=== PATIENT | male | born 1970 | race Caucasian/White ===

== ENCOUNTER → 2017-08-11 | Outpatient (CLI) | payer BC ==
--- NOTE | 2017-08-11 20:05 | CT ---
EXAMINATION TYPE: CT lumbar spine wo con DATE OF EXAM: 08/11/2017 7:57 PM COMPARISON: NONE HISTORY: Low back pain with radiating pain down the right leg CT DLP: 2294.5 mGycm Automated exposure control for dose reduction was used. Unenhanced CT of the lumbar spine was performed. Bone and soft tissue window settings are submitted as well as coronal and sagittal reconstructions. The lumbar vertebra have fairly normal alignment. There is slight narrowing of L4-5 disc. There is mi ld posterior disc bulging at L4-5. There is posterior endplate spur formation and disc herniation at L5-S1 into the spinal canal. This is slightly more towards the left side. There is a mild relative sp inal stenosis at L5-S1. There is no compression fracture. Facet joints are intact. Sacroiliac joints appear normal. I see no focal bone destruction. There is no lumbar paraspinal mass. There is mild spu rring of the endplates from L3 to S1. IMPRESSION: No compression fracture. Mild posterior L5-S1 disc herniation that is slightly more towards the left side which is opposite the symptoms. There is a minimal relative spinal stenosis at L5-S1. No fractur e.
== END ==
LOC: RADCTMAIN 19:35
PROVIDERS: ATTEND Orthopaedic Surgery Orthopaedic Surgery of the Spine
DX: M48.07 Spinal stenosis, lumbosacral region (principal); M51.27 Other intervertebral disc displacement, lumbosacral region
CPT/HCPCS: 72131